=== PATIENT | male | born 1950 | race Caucasian/White ===

== ENCOUNTER 2019-01-13 12:11 | Emergency (ER) | payer OTHER ==
[~2019-01-13] VITALS: Ht 177.8 cm; Wt 99.3 kg
--- OUTSIDE RECORDS SUMMARY | 2019-01-13 12:13 | XMS REPORT | Continuity of Care Document ---
Author Author [facility] Address Unknown Phone Unavailable Care Team Providers Care Equipment Lead Name Role Phone [employer] Information [employer] Unavailable Unavailable Problems Problem Status Onset Date Classification Date Reported Comments Source Nontoxic multinodular goiter 04/30/2018 11/10/2018 [facility] Nontoxic single thyroid nodule 04/21/2018 11/02/2018 [facility] DX: E04.2=NONTOXIC MULTINODULAR GOITER Active 04/17/2018 [facility] E04.1 - NONTOXIC SINGLE THYROID NODULE Active 04/14/2018 [facility] Medications No Data Provided for This Section Allergies, Adverse Reactions, Alerts No Known Medication Allergies Immunizations No Data Provided for This Section Results No Data Provided for This Section Pathology Reports No Data Provided for This Section Diagnostic Reports Report Value Date Source Thyroid biopsy w guidance US Patient Name: RAYMOND HOWE : 1950; Age: 67 years Male MR: [id number] Study: Thyroid biopsy w guidance US 04/23/2018 9:41 AM CDT Clinical Indication: - NODULES. COMPARISON: None CONSENT: The patient denied any drug allergies. The patient denied intake of any blood thinners, including Plavix, aspirin and warfarin. The risks and benefits of the procedure, the risk of doing nothing, as well as alternative therapies were explained to the patient. The patient was then allowed to ask questions. The patient stated understanding and agreed to proceed. It is my judgment the patient does understand the treatment plan. PROCEDURE: The patient was placed in the supine position. The neck was prepped and draped in usual sterile fashion. After localizing ultrasound, 1% lidocaine was used to anesthetize the skin. A 25 gauge needle was navigated into the right thyroid nodule under ultrasound guidance and 4 samples were obtained. Samples were sent for cytopathology examination. The patient tolerated the procedure well and there were no immediate complications. IMPRESSION: Ultrasound guided right thyroid nodule fine needle aspiration as described above. SL: [id number] 04/23/2018 [facility] Thyroid US EXAM: US THYROID DATE: 04/15/2018 11:46 AM CDT INDICATION: - E04.1 Nontoxic single thyroid nodule ADDITIONAL INFORMATION: None. COMPARISON: 01/24/2017. TECHNIQUE: Multiplanar grayscale and color Doppler ultrasound of the neck were obtained in the area of the thyroid. FINDINGS: Thyroid parenchyma: Normal. Size: Right thyroid: 4.6 x 1.3 x 1.9 cm Left thyroid: 4.1 x 1.4 x 1.5 cm Isthmus thickness: 0.5 cm Thyroid nodules: Right 1: Within the mid posterior right thyroid lobe, there is a solid mixed isoechoic and hypoechoic nodule with lobulated anterior borders and internal microcalcifications measuring 1.3 x 0.8 x 1.0 cm. This lesion is stable in size with microcalcifications and lobulation new from the prior exam. TI RADS points: 9, TR 5 (highly suspicious for malignancy) Right 2: Within the inferior aspect the right thyroid lobe, there is a solid hypoechoic 0.7 x 0.5 x 0.6 cm nodule with no abnormal internal hyperechoic foci. This nodule is stable. TI RADS points: 4, TR 4. Right 3: Within the inferior right thyroid lobe, there is a solid hypoechoic smoothly marginated 0.6 x 0.4 x 0.5 seen nodule with no abnormal internal hyperechoic foci, stable from the prior exam. TI RADS points: 4, TR 4. Left 1: Within the inferior posterior left thyroid lobe, there is a solid hypoechoic smoothly marginated 0.9 x 0.6 x 0.7 cm nodule with no abnormal internal hyperechoic foci. This nodule is stable. TI RADS points: 4, TR 4 Cervical lymph nodes: Normal. IMPRESSION: 1. Multinodular thyroid gland as above. 2. Right nodule 1 and now displays lobulation of its borders along with microcalcifications. Fine-needle aspiration of this nodule is recommended as per the 2017 ACR TI- RADS criteria. 3. Other subcentimeter nodules are stable within the gland REFERENCE: Sir FN, Marion WD, Trent EG, et al. ACR Thyroid Imaging, Reporting and Data System (TI-RADS): White Paper of the ACR TI-RADS Committee. J Am Aylin Radiol. 2017; 14(5): 587-595. 04/15/2018 [facility] Thyroid US EXAM: Thyroid ultrasound. CLINICAL HX: E04.1 Nontoxic single thyroid nodule - E04.1 Nontoxic single thyroid nodule. Clinical information: Incidental on other study. Age: 66 years. Gender: Male. TECHNIQUE: Grayscale and doppler sonogram of the thyroid gland. COMPARISON: Prior thyroid ultrasound: None. Prior thyroid biopsy: No/not known. FINDINGS: Thyroid gland measurements: -- Right lobe: 4.4 x 1.5 x 1.5 cm. -- Left lobe: 4.2 x 1.5 x 1.5 cm. -- Isthmus: 0.4 cm. Thyroid gland parenchyma: -- Size: Within normal limits. -- Echotexture: Homogeneous. -- Vascularity: Within normal limits. Thyroid nodule(s): -- Estimated total number of nodules >/=1cm: 1. -- Description: A few bilateral thyroid nodules, one of which is described below. Nodule 1: -- Size: 1.3 x 0.8 x 1.1 cm. -- Location: Right mid. -- Composition: Solid or almost completely solid (2 points). -- Echogenicity: Isoechoic (1 point). -- Shape: Not [id number] (0 points). -- Margins: Smooth (0 points). -- Echogenic foci: None (0 points). -- Other: None. -- ACR TI-RADS risk category: TR3 - Mildly suspicious (total 3 points). -- ACR recommendation: >/=2.5 cm FNA; >/=1.5 cm f/u in 1, 3, and 5 years; <1.5 cm no f/u or FNA. -- Change in ACR TI-RADS risk category: No/not applicable. Lymph node(s): No visualized suspicious lymphadenopathy. Other: None. IMPRESSION: 1. Nodule 1: ACR TI-RADS 2017 TR3. Recommend: No further follow-up. Note: Thyroid Nodule Management Recommendations per ACR TI-RADS -- No f/u or FNA recommended for: -- Cystic nodules. -- Spongiform nodules. -- Mixed cystic and solid, iso/hyperechoic nodules w/o other suspicious features. -- <1.5 cm solid, iso/hyperechoic nodules w/o other suspicious features. -- <1 cm solid, hypoechoic nodules w/o other suspicious features. -- <0.5 cm nodules. -- Additional recommendations: -- </=2 nodules should be biopsied. -- </=4 nodules should be followed. Reference: Sri LUJAN et al. ACR Thyroid Imaging, Reporting and Data System (TI-RADS): White Paper of the ACR TI-RADS Committee. JACR. 2017; 14(5): 587-595. 01/24/2017 [facility] [place] Consultation Notes No Data Provided for This Section Discharge Summaries No Data Provided for This Section History and Physicals No Data Provided for This Section Vital Signs No Data Provided for This Section Encounters Location Location Details Encounter Type Encounter Number Reason For Visit Attending Provider ADM Date DC Date Status Source [facility] [place] [facility] [id number] Gena Copelandsif 01/24/2017 01/25/2017 [facility] [place] [facility] [place] [facility] [id number] Gena Iglesia 04/15/2018 [facility] [id number] Gena Iglesia 04/23/2018 04/24/2018 [facility] Procedures No Data Provided for This Section Assessment and Plan No Data Provided for This Section Plan of Care No Data Provided for This Section Social History Social History Date Source No data available for this section 04/24/2018 [facility] No data available for this section 04/16/2018 [facility] No data available for this section 01/25/2017 [facility] [place] Family History No Data Provided for This Section Advance Directives No Data Provided for This Section Functional Status No Data Provided for This Section
--- OUTSIDE RECORDS SUMMARY | 2019-01-13 12:14 | XMS REPORT | Summary of Care ---
Author Author [facility] Organization [facility] Address Unknown Phone Unavailable Encounter HQ Encntr_alias(FIN) [id number] Date(s): 04/23/18 - 04/23/18 [facility] [address] [place] [address]- Encounter Diagnosis Nontoxic multinodular goiter (Final) - 04/29/18 Discharge Disposition: Home or Self Care Attending Physician: Gena Parekh MD Referring Physician: Gena Parekh MD Vital Signs No data available for this section Problem List No data available for this section Allergies, Adverse Reactions, Alerts No data available for this section Medications No data available for this section Results No data available for this section Immunizations No data available for this section Procedures No data available for this section Social History No data available for this section Assessment and Plan No data available for this section
--- OUTSIDE RECORDS SUMMARY | 2019-01-13 12:14 | XMS REPORT | Summary of Care ---
Author Author [facility] Outpatient Imaging [facility] Outpatient [facility] Address Unknown Phone Unavailable Encounter HQ Encntr_alias(FIN) [id number] Date(s): 04/15/18 - 04/15/18 [facility] Outpatient Imaging [facility] [address] [facility], [address] [place] [phone] Encounter Diagnosis Nontoxic single thyroid nodule (Final) - 04/20/18 Discharge Disposition: Home or Self Care Attending [...]
--- OUTSIDE RECORDS SUMMARY | 2019-01-13 12:14 | XMS REPORT | Summary of Care ---
Author Author LARISSA GATICA M.D. Organization Unknown Address [facility] Phone Unavailable Care Team Providers Care Cryptological Technician Name Role Phone LARISSA GATICA M.D. Unavailable Unavailable JESSICA PINEDA [place], CHARITO Rahman Unavailable Unavailable CHARITO LOPEZ M.D. 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 Active Protonix TBEC 1 Tablet every other day=3 Tablets per week ... per patient 2016....db * Refills: 0 Active Fish Oil 1200 MG Oral Capsule TAKE 2 CAPSULE TWICE DAILY * Refills: 0 Active Vitamin D TABS TAKE 1 TABLET DAILY * Refills: 0 Active MetFORMIN HCl - 500 MG Oral Tablet TAKE 1 TABLET BY MOUTH WITH BREAKFAST, THEN 2 TABLETS WITH DINNER * Quantity: 270 Refills: 0 LARISSA GATICA M.D. * Start : 25-Jun-2017 Active GlipiZIDE ER 5 MG Oral Tablet Extended Release 24 Hour TAKE 1 TABLET BY MOUTH EVERY DAY WITH DINNER * Quantity: 90 Refills: 0 EN Johnnie, LARISSA * Start : 21-Apr-2014 Active FreeStyle Lite Test In Vitro Strip check BG 2 times daily and additionally if needed * Quantity: 2 Refills: 0 EN Noel.Dutch, LARISSA * Start : 21-Apr-2014 Active 100 Strip Box FreeStyle Lancets use as directed 2 times daily * Quantity: 1 Refills: 3 EN Ceci., LARISSA * Start : 21-Apr-2014 Active 100 Miscellaneous Box Metrogel KIT * Refills: 0 Active AmLODIPine Besylate 2.5 MG Oral Tablet ONCE DAILY * Refills: 0 Active 30 Tablet Pack Fluocinonide CREA PRN * Refills: 0 Active 30 GM Tube Vitamin C 500 MG Oral Tablet TAKE 1 TABLET TWICE DAILY * Refills: 0 Active Multiple Vitamin TABS TAKE 1 TABLET DAILY. * Refills: 0 Active Valsartan-Hydrochlorothiazide 160-12.5 MG Oral Tablet TAKE 1 TABLET DAILY. 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, K22.70) Status: Resolved History of diabetes mellitus (V12.29, Z86.39) Status: Resolved History of fatigue (V13.89, Z87.898) Status: Resolved History of hiatal hernia (V12.79, Z87.19) Status: Resolved History of Renal cell carcinoma (189.0, C64.9) Status: Resolved Procedures Procedure Dates Details History of Lower Back Surgery Completed History of Kidney Surgery Completed History of nose surgery Completed History of tonsillectomy Completed Immunization Name Dates Details Influenza on: 08-Mar-2014 Influenza on: 23-Apr-2017 Family History Name Dates Details Family history of diabetes mellitus (V18.0, Z83.3) Status: Active Name Dates Details Family history of diabetes mellitus (V18.0, Z83.3) Status: Active Family history of benign essential tremor (V17.2, Z82.0) Status: Active Social History Name Dates Details - Status: Name Dates Details Never smoker Vital Signs Date Test Result Details [id number] BP Systolic 123 mm[Hg] Status: Comments: Location: [facility]; Position: Sitting BP Diastolic 70 mm[Hg] Status: Comments: Location: [facility]; Position: Sitting Height 70 in Status: Weight 228.4375 lb Status: Body Mass Index Calculated 32.78 kg/m2 Status: Body Surface Area Calculated 2.21 m2 Status: Heart Rate 76 /min Status: Respiration Rate 16 /min Status: Results Date Description Value Details [id number] Glucose (Point of Care In Office) Glucose POC Lifescan 98 [id number] [O] Hemoglobin A1c (in office) HEMOGLOBIN A1c 6.3 Plan of Care Name Dates Details Planned Observations Planned Goals not documented Planned Encounters Appointment; LARISSA GAITCA M.D. On: 13-Jan-2018 14:00 Interventions Provided Labs/Procedures/Imaging* [O] Hemoglobin A1c (in office); Done: 09 Oct 2017 * Glucose (Point of Care In Office); Done: 09 Oct 2017 Instructions* Patient Specific Education Given; Done: 09 Oct 2017 Discussion/Summary* 66 yo M with DM2 here for f/u. * A1c at goal, now 6.3%, but has frequent hypoglycemia and runs in the 70s, low BG, many times. Continue SMBG at least 1-2xs daily. Continue glipizide ER 5 mg in the evening and metformin 500 mg in the AM and 1000 mg in the PM with meals. Stressed MNT, eat a snack if BG low pre-lunch but try to have a light snack mid-afternoon, exercise and weight loss. BP is good. F/U in 3 mos. Instructions Name Dates Details Instructions not documented Encounters Appointment; SNOW SNIDER M.D. Encounter Diagnosis: Problem not documented On: 17-Oct-2015 15:30 Appointment; LARISSA GATICA M.D. Encounter Diagnosis: Problem not documented On: 15-Jan-2016 15:30 Appointment; LARISSA GATICA M.D. Encounter Diagnosis: Problem not documented On: 17-May-2016 15:30 Appointment; LARISSA GATICA M.D. Encounter Diagnosis: Problem not documented On: 24-Oct-2016 11:30 Appointment; EDWIN GUZMAN NP Encounter Diagnosis: Problem not documented On: 06-Dec-2016 8:15 Appointment; LARISSA GATICA M.D. Encounter Diagnosis: Problem not documented On: 08-Jan-2017 13:30 Appointment; LARISSA GATICA M.D. Encounter Diagnosis: Problem not documented On: 23-Jan-2017 8:30 Appointment; LARISSA GATICA M.D. Encounter Diagnosis: Problem not documented On: 22-May-2017 14:00 Appointment; LARISSA GATICA M.D. Encounter Diagnosis: Problem not documented On: 11-Jul-2017 11:30 Appointment; LARISSA GATICA M.D. Encounter Diagnosis: Problem not documented On: 09-Oct-2017 15:30
--- OUTSIDE RECORDS SUMMARY | 2019-01-13 12:14 | XMS REPORT | Summary of Care ---
Author Author [facility] [place] Organization [facility] [place] Address Unknown Phone Unavailable Encounter HQ Encntr_alimaria dolores(FIN) [id number] Date(s): 01/24/17 - 01/24/17 [facility] - [place] [address] [place] [phone] Discharge Disposition: Home or Self Care Attending Physician: Gena Parekh MD Vital Signs No [...]
[2019-01-13] MEDS ORDERED: KETOROLAC TROMETHAMINE 30 MG/ML VIAL IV STA (12:32)
[2019-01-13] MEDS ORDERED: KETOROLAC TROMETHAMINE 30 MG/ML VIAL ONE (12:53)
[2019-01-13] MEDS ORDERED: KETOROLAC TROMETHAMINE 60 MG/2 ML VIAL IM ONE (13:00)
--- NOTE | 2019-01-13 13:13 | Diagnostic Imaging Report ---
Exam: Right knee radiographs-3 views History: Twisted right knee. Comparison: None. Findings: No evidence of acute fracture, malalignment, or soft tissue abnormality. There are mild tricompartmental degenerative changes with joint space narrowing and bony osteophyte formation. Impression: No acute radiographic abnormality. Signed by: Dr. Monet Bee MD on 01/13/2019 1:09 PM
[2019-01-13 13:18] VITALS: BP 147/70
== END 2019-01-13 13:30 | disposition home or self-care (01) ==
LOC: FSED 12:11
DX: S83.91XA Sprain of unspecified site of right knee, initial encounter (principal); X50.1XXA Overexertion from prolonged static or awkward postures, initial encounter; Y92.008 Other place in unspecified non-institutional (private) residence as the place of occurrence of the external cause
CPT/HCPCS: 73562; 99283; J1885

== ENCOUNTER → 2024-07-30 | Day surgery (SDC) | payer OTHER ==
[2024-07-29 09:28] LABS: BASOPHILS # (AUTO) 0.1 (0.0-0.1); BASOPHILS % 0.6 % (0.0-1.0); EOSINOPHILS # (AUTO) 0.1 (0.0-0.4); EOSINOPHILS % 1.4 % (0.0-6.0); HEMATOCRIT 46.5 % (38.2-49.6); HEMOGLOBIN 14.8 g/dL (14.0-18.0); LYMPHOCYTES # (AUTO) 2.1 (1.0-3.2); LYMPHOCYTES % 24.2 % (18.0-39.1); MEAN CORPUSCULAR HEMOGLOBIN 32.3 pg (28-32); MEAN CORPUSCULAR HGB CONC 31.8 g/dL (31-35); MEAN CORPUSCULAR VOLUME 101.5 fL (81-99); MONOCYTES # (AUTO) 0.5 (0.2-0.8); MONOCYTES % 5.9 % (4.4-11.3); NEUTROPHILS # (AUTO) 5.9 (2.1-6.9); NEUTROPHILS % 66.2 % (38.7-80.0); PLATELET COUNT 170 x10e3/uL (140-360); RED BLOOD COUNT 4.58 x10e6/uL (4.3-5.7); RED CELL DISTRIBUTION WIDTH 12.5 % (11.7-14.4); WHITE BLOOD COUNT 8.84 x10e3/uL (4.8-10.8)
[~2024-07-30] MED LIST: AMLODIPINE BESYL5 MG PO; BENICAR5 MG PO; CRESTOR40 MG PO; FENTANYL CITRATE/PF 100MCG/2 ML INJ ONE; FISH OIL 1,001000 M1 PO; GLIPIZIDE5 MG PO; GLYCOPYRROLATE INJ 0.2 MG/ML VIAL ONE; JARDIANCE10 MG PO; LIDOCAINE HCL 2% LOCAL INJ 5 ML SDV VIAL INJ ONE; METFORMIN HCL500 MG PO; MIDAZOLAM HCL 2 MG/2 ML VIAL ONE; OMEPRAZOLE20 MG PO; PROPOFOL IV EMULSION 10 MG/ML 20 ML VIAL ONE; TRULICITY0.75 MG/0. SC; VITAMIN C1000 MG PO; VITAMIN D3 COM1 EACH PO
[2024-07-30] MEDS: LACTATED RINGER'S 1,000 ML ONE (10:26)
[2024-07-30 13:11] VITALS: TEMP 98.6
[2024-07-30 13:45] VITALS: BP 132/79; PULSE 74; RESP 16; O2SAT 99
== END | disposition home or self-care (01) ==
LOC: OR 09:00
PROVIDERS: ATTEND Internal Medicine Gastroenterology
DX: Z12.11 Encounter for screening for malignant neoplasm of colon (principal); D12.2 Benign neoplasm of ascending colon; K31.7 Polyp of stomach and duodenum; K29.50 Unspecified chronic gastritis without bleeding; K31.89 Other diseases of stomach and duodenum; K44.9 Diaphragmatic hernia without obstruction or gangrene; K21.9 Gastro-esophageal reflux disease without esophagitis; K57.30 Diverticulosis of large intestine without perforation or abscess without bleeding; K64.8 Other hemorrhoids; Z87.19 Personal history of other diseases of the digestive system; G47.33 Obstructive sleep apnea (adult) (pediatric); E11.9 Type 2 diabetes mellitus without complications; I10 Essential (primary) hypertension; E78.2 Mixed hyperlipidemia; Z01.810 Encounter for preprocedural cardiovascular examination; Z01.812 Encounter for preprocedural laboratory examination; Z79.84 Long term (current) use of oral hypoglycemic drugs; Z79.85 Long-term (current) use of injectable non-insulin antidiabetic drugs; Z79.899 Other long term (current) drug therapy; Z68.32 Body mass index [BMI] 32.0-32.9, adult; Z85.53 Personal history of malignant neoplasm of renal pelvis; Z80.0 Family history of malignant neoplasm of digestive organs
CPT/HCPCS: 36415; 43239; 45384; 85025; 93005; J2003; J2250; J2704; J3010; J7121